=== PATIENT | male | born 1995 | race Two or more races ===

== ENCOUNTER 2022-01-19 12:12 | Emergency (ER) | payer SELFPAY ==
[~2022-01-19] VITALS: Ht 185.4 cm; Wt 86.2 kg
--- NOTE | 2022-01-19 12:18 | NUR ---
BIBS C/O persistent headache, productive cough x 3 days. AMBULATORY, PLACED ON BED, AAOX4, BREATHING EVEN AND ULABORED. SEEN AND EXAMINED BY .
[2022-01-19] MEDS ORDERED: CETI1TAB9 PO (12:25)
[2022-01-19] MEDS ORDERED: AZIT250T13 PO (12:25)
--- NOTE | 2022-01-19 12:45 | NUR ---
Patient discharged to home in stable condition. Written and verbal after care instructions given. Patient verbalizes understanding of instruction.
[2022-01-19 13:04] VITALS: BP 130/95
== END 2022-01-19 12:45 | disposition home or self-care (01) ==
LOC: ER 12:17
DX: R51.9 Headache, unspecified (principal); J01.90 Acute sinusitis, unspecified; Z79.899 Other long term (current) drug therapy